=== PATIENT | female | born 1980 | race Caucasian/White ===

== ENCOUNTER 2021-11-01 16:31 | Emergency (ER) | payer OTHER ==
[~2021-11-01 16:31] MED LIST: ADMELOG100 UNIT/1 SC; AMOXICILLIN500 M1 PO; BASAGLAR K100 UNIT/1 SC; BUPROPION HCL150 M1 PO; BYDUREON P2 MG/0.65 SC; CARAFATE1 GM PO; CELEBREX 100MG100 MG PO; CITALOPRAM HBR20 MG PO; CLEOCIN300 MG PO; CLINDAMYCIN 15150 MG PO; COLESTID1 GM PO; ELIQUIS5 MG PO; GABAPENTIN300 MG PO; LIPITOR 10MG TA10 MG PO; LISINOPRIL 10MG10 MG PO; METRONIDAZOLE500 MG PO; MOTRIN600 MG PO; NEURONTIN300 MG PO; NEXIUM40 MG PO; NORCO 10-325 T1 EACH PO; NORCO 5-325 TA1 EACH PO; NORVASC5 MG PO; PAXIL10 MG PO; PERCOCET 5-3251 EACH PO; PHENERGAN25 M1 PO; QUETIAPINE FUM100 MG PO; TRESIBA FL200 UNIT/1 SC; VIBRAMYCIN100 MG PO
[2021-11-01] MEDS ORDERED: KEFLEX250 MG PO (20:11)
[2021-11-01] MEDS ORDERED: BACTRIM DS TAB1 EACH PO (20:11)
== END 2021-11-01 20:53 | disposition home or self-care (01) ==
LOC: FER 16:31
DX: L03.311 Cellulitis of abdominal wall (principal); L02.211 Cutaneous abscess of abdominal wall; I10 Essential (primary) hypertension; E11.9 Type 2 diabetes mellitus without complications; F17.210 Nicotine dependence, cigarettes, uncomplicated; Z88.8 Allergy status to other drugs, medicaments and biological substances
CPT/HCPCS: 87070; 87186; 87205; 99283

== ENCOUNTER 2022-02-07 21:18 | Emergency (ER) | payer OTHER ==
[~2022-02-07 21:18] MED LIST changes: +BACTRIM DS TAB1 EACH PO; +KEFLEX250 MG PO
[2022-02-07] MEDS ORDERED: CEFDINIR300 MG PO (23:34)
[2022-02-07] MEDS ORDERED: CLEOCIN300 MG PO (23:34)
[2022-02-07] MEDS ORDERED: PERCOCET 5-3251 EACH PO (23:35)
== END 2022-02-08 00:21 | disposition home or self-care (01) ==
LOC: FER 21:18
DX: I73.1 Thromboangiitis obliterans [Buerger's disease] (principal); E11.52 Type 2 diabetes mellitus with diabetic peripheral angiopathy with gangrene; I10 Essential (primary) hypertension; Z88.8 Allergy status to other drugs, medicaments and biological substances; Z87.891 Personal history of nicotine dependence
CPT/HCPCS: 73120; 96372; J0696; J1170

== ENCOUNTER 2022-03-02 01:34 | Emergency (ER) | payer OTHER ==
[~2022-03-02 01:34] MED LIST changes: +CEFDINIR300 MG PO
== END 2022-03-02 05:30 | disposition other institution (70) ==
LOC: FER 01:34
DX: S61.204A Unspecified open wound of right ring finger without damage to nail, initial encounter (principal); F17.200 Nicotine dependence, unspecified, uncomplicated; I10 Essential (primary) hypertension; E11.9 Type 2 diabetes mellitus without complications; Z28.310 Unvaccinated for COVID-19
CPT/HCPCS: 73130; J1170; J3370; J7050

== ENCOUNTER 2022-03-08 09:54 | Emergency (ER) | payer OTHER ==
[2022-03-08] MEDS ORDERED: NEURONTIN300 MG PO (10:57)
[2022-03-08] MEDS ORDERED: PERCOCET 7.5/321 TAB PO (10:57)
== END 2022-03-08 11:23 | disposition home or self-care (01) ==
LOC: FER 09:54
DX: I96 Gangrene, not elsewhere classified (principal); I10 Essential (primary) hypertension; E11.9 Type 2 diabetes mellitus without complications; Z88.8 Allergy status to other drugs, medicaments and biological substances; Z79.01 Long term (current) use of anticoagulants; Z87.891 Personal history of nicotine dependence; Z28.310 Unvaccinated for COVID-19
CPT/HCPCS: J1170